=== PATIENT | female | born 1960 | race Hispanic/Latino ===

== ENCOUNTER 2021-08-31 13:20 | Inpatient (IN) | payer SELFPAY ==
[~2021-08-31 13:20] MED LIST: Iopamidol-370 76% 500 ML 1 ML ONE
[2021-08-31 14:19] LABS: #Monocytes 0.3 thou/uL (0.11-0.59); #Neutrophils 7.9 thou/uL (1.40-6.50); %Eosinophils 0.1 % (0.0-10.0); %Lymphocytes 11.1 % (21.0-51.0); %Monocytes 3.4 % (0.0-10.0); %Neutrophils 85.5 % (42.0-75.0); Mean Corpuscular HGB CONC 31.5 g/dL (32.0-36.0); Mean Corpuscular Hemoglobin 29.5 pg (27.0-31.0); Mean Corpuscular Volume 93.9 fL (78.0-98.0); Mean Platelet Volume 7.4 fL (7.4-10.4); Platelet Count 344 thou/uL (130-400); RBC Distribution Width 11.9 % (11.5-14.5); Red Blood Cell (RBC) Count 4.08 mill/uL (4.20-5.40); White Blood Cell (WBC) Count 9.3 thou/uL (4.8-10.8)
[2021-08-31 14:44] LABS: ALT (SGPT) 13 U/L (8-55); AST (SGOT) 11 U/L (5-34); Albumin 3.2 g/dL (3.4-4.8); Alkaline Phosphatase 137 U/L (40-110); Anion Gap 33 mmol/L (10-20); BUN (Urea Nitrogen) 24 mg/dL (9.8-20.1); Bilirubin, Total 0.4 mg/dL (0.2-1.2); Calc. Creatinine Clearance 0 mL/min (70-130); Calcium 9.2 mg/dL (7.8-10.44); Carbon Dioxide 10 mmol/L (23-31); Chloride 95 mmol/L (98-107); Globulin 4.8 g/dL (2.4-3.5); Potassium 5.6 mmol/L (3.5-5.1); Sodium 132 mmol/L (136-145)
[2021-08-31 14:46] LABS: Analyzer IN Cardio ER; Base Excess -16.5 mEq/L (-2.0 to +3.0); Calcium, Ionized (venous) 1.12 mmol/L (1.16-1.32); Chloride (VBG) 97 mmol/L (98-106); Hemoglobin (Hb) 13.2 g/dL (11.7-16.0); Potassium (VBG) 5.26 mmol/L (3.70-5.30); Sodium 128.8 mmol/L (133-146); pH (venous) 7.25 (7.32-7.43)
[2021-08-31 14:52] LABS: Actual Bicarbonate (HCO3v) 9 mEq/L (22-28)
[2021-08-31 14:56] LABS: Glucose 787 mg/dL (80-115)
[2021-08-31] MEDS ORDERED: Insulin Regular 300 UNITS/3 ML VIAL ONE (15:33)
[2021-08-31] MEDS ORDERED: INSULIN REGULAR IN 0.9 % NACL 100 UNIT/100 ML BAG ONE (16:01)
[2021-08-31] MEDS ORDERED: Heparin 25,000 units/D5W 500 ML IVPB SCH (16:15)
[2021-08-31] MEDS ORDERED: Heparin 10,000 UNITS/ 10 ML VIAL SLOW IVP SCH (16:15)
[2021-08-31 16:44] LABS: Platelet Count 361 thou/uL (130-400)
[2021-08-31] MEDS ORDERED: Sodium Chloride 0.9% 1,000 ML IV PRN ×3 (16:55)
[2021-08-31] MEDS ORDERED: Dextrose 5 %-0.45 % NaCl 1,000 ML IV PRN (16:55)
[2021-08-31] MEDS ORDERED: NS 0.9% w/ 20 MEQ KCL 1,000 ML IV PRN ×2 (16:55)
[2021-08-31] MEDS ORDERED: Ondansetron PF 4 MG/2 ML Vial IVP PRN (16:55)
[2021-08-31] MEDS ORDERED: Electrolyte Replacement Protocol 1 EACH IVPB SCH (16:55)
[2021-08-31] MEDS ORDERED: HUMULIN R 100 UNITS in Sodium Chloride 0.9% 100 ML IVPB SCH (17:00)
[2021-08-31] MEDS ORDERED: hydrALAZINE 20 MG/ML VIAL SLOW IVP PRN (17:00)
[2021-08-31 18:28] LABS: Anion Gap 28 mmol/L (10-20); BUN (Urea Nitrogen) 18 mg/dL (9.8-20.1); Calc. Creatinine Clearance 0 mL/min (70-130); Calcium 8.7 mg/dL (7.8-10.44); Chloride 104 mmol/L (98-107); Sodium 136 mmol/L (136-145)
[2021-08-31 18:39] LABS: Carbon Dioxide 9 mmol/L (23-31); Glucose 610 mg/dL (80-115)
[2021-08-31] MEDS: Sodium Chloride 0.9% 1,000 ML IV PRN ×2 (21:00→23:35)
[2021-08-31 21:43] LABS: Anion Gap 26 mmol/L (10-20); BUN (Urea Nitrogen) 17 mg/dL (9.8-20.1); Calc. Creatinine Clearance 0 mL/min (70-130); Calcium 8.7 mg/dL (7.8-10.44); Carbon Dioxide 11 mmol/L (23-31); Chloride 108 mmol/L (98-107); Glucose 388 mg/dL (80-115); Potassium 4.5 mmol/L (3.5-5.1); Sodium 140 mmol/L (136-145)
[2021-08-31] MEDS: Aspirin 81 mg Enteric Coated Tablet PO SCH (21:53)
[2021-08-31] MEDS: Atorvastatin Calcium 40 MG TAB PO SCH (21:54)
[2021-08-31 23:14] LABS: SARS-CoV-2 NAA Rapid Test DETECTED (NotDetected)
[2021-09-01 01:18] LABS: Anion Gap 18 mmol/L (10-20); BUN (Urea Nitrogen) 14 mg/dL (9.8-20.1); Calc. Creatinine Clearance 57 mL/min (70-130); Calcium 8.2 mg/dL (7.8-10.44); Carbon Dioxide 13 mmol/L (23-31); Chloride 110 mmol/L (98-107); Glucose 230 mg/dL (80-115); Potassium 3.9 mmol/L (3.5-5.1); Sodium 137 mmol/L (136-145)
[2021-09-01] MEDS: D5 1/2 NS w/20 mEq KCL 1,000 ML IV PRN ×4 (01:43→21:34)
[2021-09-01 04:02] LABS: Anion Gap 15 mmol/L (10-20); BUN (Urea Nitrogen) 10 mg/dL (9.8-20.1); Calc. Creatinine Clearance 60 mL/min (70-130); Calcium 8.5 mg/dL (7.8-10.44); Carbon Dioxide 13 mmol/L (23-31); Cardiac Risk 4.5 (Less than 4.5); Chloride 110 mmol/L (98-107); Cholesterol 129 mg/dl (< 200 Desired); Glucose 197 mg/dL (80-115); HDL Cholesterol 27 mg/dL (>60 Neg Risk); LDL Cholesterol, Calculated 65 mg/dL; Potassium 3.9 mmol/L (3.5-5.1); Sodium 134 mmol/L (136-145); Triglycerides 167 mg/dL (Less than 150)
[2021-09-01 10:24] LABS: Anion Gap 13 mmol/L (10-20); BUN (Urea Nitrogen) 6 mg/dL (9.8-20.1); Calc. Creatinine Clearance 78 mL/min (70-130); Calcium 7.9 mg/dL (7.8-10.44); Carbon Dioxide 15 mmol/L (23-31); Chloride 111 mmol/L (98-107); Glucose 227 mg/dL (80-115); Potassium 4.4 mmol/L (3.5-5.1); Sodium 135 mmol/L (136-145)
[2021-09-01] MEDS: Pantoprazole 40 MG VIAL IVP SCH (11:15)
[2021-09-01] MEDS ORDERED: Dextrose 50% Abboject 50 ML SYRINGE SLOW IVP PRN (16:05)
[2021-09-01] MEDS ORDERED: Dextrose 5% in Water 1,000 ML IV PRN (16:05)
[2021-09-01 16:51] LABS: Anion Gap 11 mmol/L (10-20); BUN (Urea Nitrogen) 5 mg/dL (9.8-20.1); Calc. Creatinine Clearance 79 mL/min (70-130); Calcium 7.7 mg/dL (7.8-10.44); Carbon Dioxide 19 mmol/L (23-31); Chloride 109 mmol/L (98-107); Glucose 212 mg/dL (80-115); Potassium 4.2 mmol/L (3.5-5.1); Sodium 135 mmol/L (136-145)
[2021-09-01] MEDS ORDERED: Lantus 1000 UNITS/10 ML VIAL SC SCH (21:00)
[2021-09-01] MEDS: Atorvastatin Calcium 40 MG TAB PO SCH (21:34)
[2021-09-02] MEDS: Aspirin 81 mg Enteric Coated Tablet PO SCH ×2 (03:40→19:21)
[2021-09-02 04:03] LABS: #Eosinphils 0.1 thou/uL (0.0-0.7); #Lymphocytes 1.5 thou/uL (1.20-3.40); #Monocytes 0.7 thou/uL (0.11-0.59); #Neutrophils 6.9 thou/uL (1.40-6.50); %Basophils 0.2 % (0.0-1.0); %Eosinophils 0.7 % (0.0-10.0); %Lymphocytes 16.7 % (21.0-51.0); %Monocytes 7.2 % (0.0-10.0); %Neutrophils 75.2 % (42.0-75.0); Hemoglobin 11.7 g/dL (12.0-16.0); Mean Corpuscular HGB CONC 31.4 g/dL (32.0-36.0); Mean Corpuscular Hemoglobin 28.4 pg (27.0-31.0); Mean Corpuscular Volume 90.6 fL (78.0-98.0); Platelet Count 286 thou/uL (130-400); White Blood Cell (WBC) Count 9.1 thou/uL (4.8-10.8)
[2021-09-02 04:08] LABS: Hemoglobin A1c Greater than 14.0 % (4.0-6.0)
[2021-09-02 04:29] LABS: Anion Gap 15 mmol/L (10-20); BUN (Urea Nitrogen) 5 mg/dL (9.8-20.1); Calc. Creatinine Clearance 74 mL/min (70-130); Calcium 7.8 mg/dL (7.8-10.44); Carbon Dioxide 17 mmol/L (23-31); Chloride 108 mmol/L (98-107); Glucose 275 mg/dL (80-115); Potassium 4.6 mmol/L (3.5-5.1); Sodium 135 mmol/L (136-145)
[2021-09-02] MEDS: Insulin Regular 300 UNITS/3 ML VIAL SC PRN ×3 (05:01→17:20)
[2021-09-02] MEDS: Pantoprazole 40 MG VIAL IVP SCH (08:50)
[2021-09-02] MEDS: Enoxaparin Sodium 60 MG/0.6 ML SYRINGE SC SCH (17:17)
[2021-09-02] MEDS: Lantus 1000 UNITS/10 ML VIAL SC SCH (21:47)
[2021-09-02] MEDS: Atorvastatin Calcium 40 MG TAB PO SCH (21:47)
[2021-09-03 04:07] LABS: #Lymphocytes 1.7 thou/uL (1.20-3.40); #Monocytes 0.7 thou/uL (0.11-0.59); #Neutrophils 4.6 thou/uL (1.40-6.50); %Basophils 0.5 % (0.0-1.0); %Eosinophils 0.4 % (0.0-10.0); %Lymphocytes 23.9 % (21.0-51.0); %Monocytes 10.1 % (0.0-10.0); %Neutrophils 65.1 % (42.0-75.0); Hemoglobin 11.3 g/dL (12.0-16.0); Mean Corpuscular HGB CONC 31.8 g/dL (32.0-36.0); Mean Corpuscular Hemoglobin 28.7 pg (27.0-31.0); Mean Corpuscular Volume 90.5 fL (78.0-98.0); Mean Platelet Volume 7.3 fL (7.4-10.4); Platelet Count 228 thou/uL (130-400); RBC Distribution Width 11.9 % (11.5-14.5); Red Blood Cell (RBC) Count 3.92 mill/uL (4.20-5.40)
[2021-09-03 04:28] LABS: Anion Gap 13 mmol/L (10-20); BUN (Urea Nitrogen) 8 mg/dL (9.8-20.1); Calc. Creatinine Clearance 68 mL/min (70-130); Carbon Dioxide 21 mmol/L (23-31); Chloride 107 mmol/L (98-107); Glucose 276 mg/dL (80-115); Potassium 4.1 mmol/L (3.5-5.1); Sodium 137 mmol/L (136-145)
[2021-09-03] MEDS: Enoxaparin Sodium 60 MG/0.6 ML SYRINGE SC SCH (06:41)
[2021-09-03] MEDS: Insulin Regular 300 UNITS/3 ML VIAL SC PRN ×4 (06:41→22:04)
[2021-09-03] MEDS: Lantus 1000 UNITS/10 ML VIAL SC SCH ×2 (08:48→21:47)
[2021-09-03] MEDS ORDERED: Dextrose 50% Abboject 50 ML SYRINGE SLOW IVP PRN (21:39)
[2021-09-03] MEDS ORDERED: Dextrose 5% in Water 1,000 ML IV PRN (21:39)
[2021-09-03] MEDS: Aspirin 81 mg Enteric Coated Tablet PO SCH (21:46)
[2021-09-03] MEDS: Apixaban 5 MG TAB PO SCH (21:46)
[2021-09-03] MEDS: Atorvastatin Calcium 40 MG TAB PO SCH (21:46)
[2021-09-04 05:25] LABS: Anion Gap 15 mmol/L (10-20); BUN (Urea Nitrogen) 9 mg/dL (9.8-20.1); Calc. Creatinine Clearance 75 mL/min (70-130); Carbon Dioxide 23 mmol/L (23-31); Chloride 105 mmol/L (98-107); Glucose 220 mg/dL (80-115); Potassium 3.9 mmol/L (3.5-5.1); Sodium 139 mmol/L (136-145)
[2021-09-04] MEDS: Insulin Regular 300 UNITS/3 ML VIAL SC PRN ×4 (06:24→22:11)
[2021-09-04] MEDS: Apixaban 5 MG TAB PO SCH ×2 (08:54→22:09)
[2021-09-04] MEDS: Lantus 1000 UNITS/10 ML VIAL SC SCH ×2 (08:54→22:11)
[2021-09-04] MEDS ORDERED: FLU VACC QS2021-22(6MOS UP)/PF 60 MCG/0.5 ML SYRINGE IM ONE (09:00)
[2021-09-04 15:17] LABS: Bacteria/HPF 4+ HPF (None Seen); Bilirubin Negative (Negative); Blood, Urine 1+ (Negative); Clarity Extra Turbid (Clear); Glucose, Urine (Dipstick) Greater than 1000 mg/dL (Negative); Ketone, Urine Negative (Negative); Leukocyte 500 Leu/uL (Negative); Nitrite Negative (Negative); Protein, Urine (Dipstick) 30 mg/dL (Neg-Trace); Specific Gravity, Urine 1.018 (1.002-1.036); Squamous Epithelial 0-3 HPF (0-3); Urobilinogen 3 mg/dL (Less than 2); pH, Urine 6.5 (5.0-9.0)
[2021-09-04 15:24] LABS: Transitional Epithelial 0-3 HPF (None Seen); WBC/HPF Greater than 50 HPF (0-3)
[2021-09-04] MEDS ORDERED: hydrALAZINE 20 MG/ML VIAL SLOW IVP PRN (16:10)
[2021-09-04] MEDS: Carvedilol 6.25 MG TAB PO SCH (16:29)
[2021-09-04] MEDS: cefTRIAXone\\ROCEPHIN 2 GM in Sodium Chloride 0.9% 100 ML IVPB SCH (16:30)
[2021-09-04] MEDS: Acetaminophen 325 MG TAB PO PRN (16:34)
[2021-09-04] MEDS: Aspirin 81 mg Enteric Coated Tablet PO SCH (22:09)
[2021-09-04] MEDS: Atorvastatin Calcium 40 MG TAB PO SCH (22:10)
[2021-09-05] MEDS: Acetaminophen 325 MG TAB PO PRN (01:08)
[2021-09-05 05:25] LABS: Anion Gap 14 mmol/L (10-20); BUN (Urea Nitrogen) 14 mg/dL (9.8-20.1); Calc. Creatinine Clearance 70 mL/min (70-130); Calcium 8.2 mg/dL (7.8-10.44); Carbon Dioxide 24 mmol/L (23-31); Chloride 102 mmol/L (98-107); Glucose 279 mg/dL (80-115); Potassium 4.1 mmol/L (3.5-5.1); Sodium 136 mmol/L (136-145)
[2021-09-05] MEDS: Insulin Regular 300 UNITS/3 ML VIAL SC PRN ×2 (07:57→11:42)
[2021-09-05] MEDS: Carvedilol 6.25 MG TAB PO SCH ×2 (09:55→16:52)
[2021-09-05] MEDS: Apixaban 5 MG TAB PO SCH ×2 (09:55→22:12)
[2021-09-05] MEDS: Lantus 1000 UNITS/10 ML VIAL SC SCH ×2 (09:56→22:13)
[2021-09-05] MEDS: cefTRIAXone\\ROCEPHIN 2 GM in Sodium Chloride 0.9% 100 ML IVPB SCH (16:52)
[2021-09-05] MEDS: Atorvastatin Calcium 40 MG TAB PO SCH (22:12)
[2021-09-05] MEDS: Aspirin 81 mg Enteric Coated Tablet PO SCH (22:12)
[2021-09-06 05:06] LABS: Anion Gap 14 mmol/L (10-20); BUN (Urea Nitrogen) 14 mg/dL (9.8-20.1); Calc. Creatinine Clearance 73 mL/min (70-130); Calcium 8.5 mg/dL (7.8-10.44); Carbon Dioxide 24 mmol/L (23-31); Chloride 103 mmol/L (98-107); Glucose 124 mg/dL (80-115); Sodium 137 mmol/L (136-145)
[2021-09-06] MEDS: Carvedilol 6.25 MG TAB PO SCH (10:06)
[2021-09-06] MEDS: Lantus 1000 UNITS/10 ML VIAL SC SCH (10:06)
[2021-09-06] MEDS: Apixaban 5 MG TAB PO SCH (10:06)
[2021-09-06 15:18] VITALS: BMI 23.1
[2021-09-06 17:54] VITALS: BP 137/67; TEMP 98.3
== END 2021-09-06 17:28 | disposition home health service (06) | DRG 64 ==
LOC: ERS 13:20 → CCU 17:08 → IMCU/EMU 09-01 13:07 → 2NO 09-03 12:39
PROVIDERS: ADMIT Family Medicine; ATTEND Hospitalist
PROC: 8E0ZXY6 Isolation (ICD-10-PCS; principal; 2021-08-31)
DX: I63.421 Cerebral infarction due to embolism of right anterior cerebral artery (principal); Z23 Encounter for immunization; R29.710 NIHSS score 10; I26.99 Other pulmonary embolism without acute cor pulmonale; E11.10 Type 2 diabetes mellitus with ketoacidosis without coma; U07.1 COVID-19; J12.82 Pneumonia due to coronavirus disease 2019; G81.94 Hemiplegia, unspecified affecting left nondominant side; N17.9 Acute kidney failure, unspecified; I08.1 Rheumatic disorders of both mitral and tricuspid valves; E87.5 Hyperkalemia; Z86.73 Personal history of transient ischemic attack (TIA), and cerebral infarction without residual deficits; H53.9 Unspecified visual disturbance; Z79.4 Long term (current) use of insulin; Z79.82 Long term (current) use of aspirin; Z79.899 Other long term (current) drug therapy
CPT/HCPCS: 36415; 36416; 70551; 71275; 80048; 80053; 80061; 81003; 81015; 82805; 83036; 83605; 84484; 85025; 85379; 85730; 86140; 90471; 90686; 90732; 93005; 93306; 93970; 96374; C9113; G0008; G0009; J0360; J0696; J1650; J1815; J3480; J3490; J7050; Q9967; U0002